=== PATIENT | female | born 1965 | race Caucasian/White ===

== ENCOUNTER 2016-08-13 06:04 | Day surgery (SDC) | payer BC ==
[2016-08-07 13:55] LABS: BASOPHILS 0.5 %; BASOPHILS ABSOLUTE 0.03 10/3/uL (0.0-0.16); EOSINOPHILS 3.5 %; EOSINOPHILS ABSOLUTE 0.22 10/3/uL (0.0-0.53); HEMATOCRIT 41.9 % (36.0-48.0); IMMATURE GRANULOCYTES 0.2 %; IMMATURE GRANULOCYTES ABSOLUTE 0.01 10/3/uL (0.0-0.11); LYMPHOCYTES 32.1 %; LYMPHOCYTES ABSOLUTE 2.04 10/3/uL (0.67-4.30); MEAN CORPUS HGB CONC 33.4 g/dL (32.0-36.0); MEAN CORPUSCULAR HEMOGLOB 30.5 pg (26.0-34.0); MEAN PLATELET VOLUME 10.1 fL (9.2-13.0); MONOCYTES 6.8 %; MONOCYTES ABSOLUTE 0.43 10/3/uL (0.21-1.20); NEUTROPHILS 56.9 %; NEUTROPHILS ABSOLUTE 3.62 10/3/uL (2.02-8.40); PLATELET COUNT 242 10/3/uL (150-400); RBC DISTRIBUTION WIDTH 14.5 % (12.0-16.0); RED CELL COUNT 4.59 10/6/uL (4.0-5.6); WHITE BLOOD CELLS 6.4 10/3/uL (4.5-10.5)
[2016-08-07 14:00] LABS: MANUAL DIFF NO %; MEAN CORPUSCULAR VOLUME 91.3 fL (80-100)
[2016-08-07 14:11] LABS: BUN (BLOOD UREA NITROGEN) 12 MG/DL (6-23); CALCIUM, SERUM 8.7 MG/DL (8.5-10.4); CHLORIDE, SERUM 107 MMOL/L (96-112); CO2 (CARBON DIOXIDE) 28 MMOL/L (24-34); CREATININE 0.87 MG/DL (0.55-1.02); GFR AFRICAN AMERICAN 89 ML/MIN (>=60); GFR NON AFRICAN AMERICAN 77 ML/MIN (>=60); GLUCOSE, SERUM 93 MG/DL (60-99); POTASSIUM, SERUM 3.8 MMOL/L (3.5-5.3); SODIUM, SERUM 141 MMOL/L (135-148)
[2016-08-07 14:15] LABS: ASCORBIC ACID (UR NOT ORDER) 40 (NEG); BILIRUBIN, URINE NEGATIVE (NEG); KETONE, URINE NEGATIVE (NEG); LEUKOCYTE ESTERASE(NOT OR NEG (NEG); WBC (NOT ORDERED) (RFLEX) < 1 (0-5)
--- NOTE | ~2016-08-13 | OP ---
Record Of [facility] [address] [facility] [place]. [address] NAME: RAYMON RAMOS : 63 STATUS : [facility]#: [id number] AGE: 50 ADM/REG DATE : 08/13/16 MR#: [id number] REPORT SERV DATE: 08/13/16 DICTATED BY: BETHEL LIPSCOMB DATE: 08/13/16 REPORT STATUS : Draft TRANSCRIBED BY: MODL DATE: 08/13/16 DATE OF PROCEDURE: 08/13/2016 PREOPERATIVE DIAGNOSIS: Postmenopausal bleeding. POSTOPERATIVE DIAGNOSES: Postmenopausal bleeding and uterine fibroids. PROCEDURES: Hysteroscopy, dilation and curettage. CPT code 79032. SURGEON: Bethel Lipscomb MD. ANESTHESIA: General. ESTIMATED BLOOD LOSS: Less than 10 mL. DRAINS: Mathias. FINDINGS: Relatively atrophic endometrial cavity which was anatomically distorted by several submucosal fibroids, mainly an anterior fibroid, and also posterior fibroid. No evidence of neoplastic process. PATHOLOGY: Endometrial curettings. COMPLICATIONS: None. POSTOPERATIVE PLAN: Extubated to PACU. PROCEDURE IN DETAIL: After informed consent was signed, the patient was taken to the operating room, and placed in dorsal supine position, where adequate general anesthesia was administered. She was then placed in dorsal lithotomy position in Mikal stirrups, and prepped and draped in the usual fashion, and a Mathias catheter was placed. The bladder was distended with approximately 150 mL of normal saline to facilitate ultrasound guidance. The uterus was sounded under direct ultrasound guidance to approximately 12 cm. It was then dilated further, and then a hysteroscope was then placed through the endocervical canal into the endometrial cavity, and distended with appropriate media. Both tubal ostia were identified with additional findings as above were noted. The hysteroscope was removed, and the cervical canal was dilated further, and sharp curettings were performed in all four quadrants under direct ultrasound guidance. This concluded the procedure. The Mathias catheter was removed. Exam under anesthesia was performed which was normal. The patient was placed back in dorsal supine position, awakened, extubated, and sent to the PACU in stable condition. JERMAIN/SUZI Record Of [address] [address] NAME: RAYMON RAMOS : 63 STATUS : [facility]#: [id number] AGE: 50 ADM/REG DATE : 08/13/16 MR#: [id number] REPORT SERV DATE: 08/13/16 DICTATED BY: BETHEL LIPSCOMB DATE: 08/13/16 REPORT STATUS : Draft TRANSCRIBED BY: MODL DATE: 08/13/16 Bethel Lipscomb MD / [id number] CC: MD Alexis Combs M.D.
[~2016-08-13 06:04] MED LIST: AMOXIL500 MG PO; ATV1 PO; CYTO5 PO; MAGNESIUM CITRATE; MULTIPLE VIT PO; NEUR100 PO; NP THYROID; PCET PO; PR25 PO; SYN1 PO; SYN125 PO; TANDEM PO; TOPXL25 PO; VITAMIN D31000 UNIT PO; VITC500 PO; [UNRECOGNIZED DRUG - OTHER]; [UNRECOGNIZED DRUG - REMARK]
== END 2016-08-13 12:08 | disposition home or self-care (01) ==
LOC: SDC 06:04
PROVIDERS: Obstetrics & Gynecology Gynecology
PROC: 0UDB8ZX Extraction of Endometrium, Via Natural or Artificial Opening Endoscopic, Diagnostic (ICD-10-PCS; principal; 2016-08-13 07:15)
DX: N95.0 Postmenopausal bleeding (principal); E03.9 Hypothyroidism, unspecified; F41.9 Anxiety disorder, unspecified; Z90.49 Acquired absence of other specified parts of digestive tract; Z98.890 Other specified postprocedural states; Z80.1 Family history of malignant neoplasm of trachea, bronchus and lung; Z79.2 Long term (current) use of antibiotics; Z79.899 Other long term (current) drug therapy
CPT/HCPCS: 71020; 76856; 76998; 80048; 81001; 84703; 85025; 88305; 93005; A9270-GY; J0694; J1885; J2250; J2405; J3010